=== PATIENT | female | born 1970 | race Caucasian/White ===

== ENCOUNTER 2018-03-01 08:16 | Emergency (ER) | payer BC, OTHER ==
[2018-03-01] MEDS: ACETAMINOPHEN 325 MG TAB PO (09:12)
[2018-03-01 09:13] LABS: URINE BLOOD (Dip) POC Trace-intact (NEGATIVE); URINE GLUCOSE (Dip) POC Negative (NEGATIVE); URINE KETONES (Dip) POC Negative (NEGATIVE); URINE LEUKOCYTE EST (Dip) POC Negative (NEGATIVE); URINE NITRITE (Dip) POC Negative (NEGATIVE); URINE TOTAL PROTEIN POC Negative (NEGATIVE)
== END 2018-03-01 12:15 | disposition home or self-care (01) ==
LOC: FTE 08:16
DX: H01.116 Allergic dermatitis of left eye, unspecified eyelid (principal); R51 Headache
CPT/HCPCS: 70450; 81003; 81025; 99284-25